=== PATIENT | male | born 1980 | race Caucasian/White ===

== ENCOUNTER 2020-11-03 22:23 | Emergency (ER) | payer OTHER ==
[2020-11-04 00:33] LABS: HEMOGLOBIN 15.7 gm/dl (14.0-17.5); RED BLOOD COUNT 4.91 M/UL (4.20-5.50); WHITE BLOOD COUNT 4.7 K/UL (4.5-11.0)
[2020-11-04 00:57] LABS: BUN/CREATININE RATIO 18 (0-10)
[2020-11-04] MEDS ORDERED: CARAFATE1 GM PO (01:35)
[2020-11-04] MEDS ORDERED: PEPCID20 MG PO (01:35)
== END 2020-11-04 01:45 | disposition home or self-care (01) ==
LOC: ER1 22:23
PROVIDERS: Emergency Medicine
DX: R10.13 Epigastric pain (principal); F17.200 Nicotine dependence, unspecified, uncomplicated
CPT/HCPCS: 80053; 83690; 85025; 96374; 99284; C9113; Q9967